=== PATIENT | male | born 1985 | race African-American/Black ===

== ENCOUNTER 2021-07-30 21:35 | Emergency (ER) | payer MEDICAID ==
[~2021-07-30] VITALS: Ht 170.2 cm; Wt 81.0 kg
[2021-07-30] MEDS ORDERED: IBUPROFEN 800MG TABLET PO ONE (21:45)
[2021-07-30 21:56] VITALS: BP 125/78
[2021-07-30] MEDS ORDERED: ACETAMINOPHEN 325MG TABLET PO ONE (22:15)
== END 2021-07-30 22:33 ==
LOC: ER 21:35
DX: R07.89 Other chest pain (principal); Z04.1 Encounter for examination and observation following transport accident; Z86.718 Personal history of other venous thrombosis and embolism; Z79.01 Long term (current) use of anticoagulants
CPT/HCPCS: 71045; 93005; 99283